=== PATIENT | female | born 1960 | race Caucasian/White ===

== ENCOUNTER → 2021-12-14 | Outpatient (CLI) | payer OTHER, SELFPAY ==
--- NOTE | 2021-12-14 13:29 | MRI_ITS ---
STUDY: MRI BRAIN WITH AND WITHOUT CONTRAST REASON FOR EXAM: Female, 61 years old. L ORBITAL INFLAMATION, H/O BREAST CA, METS TO EYE TECHNIQUE: Standardized multiplanar fat and water weighted pulse sequences were obtained. IV 15mL DOTAREM was administered for the contrast portion of the examination. COMPARISON: None. FINDINGS: Stranding of the left intraconal fat planes is visualized. Linear irregular enhancement visualized along the posterior medial aspect of the left globe extending to the left optic canal best visualized on contrast-enhanced axial series 12 image 8. Along the lateral aspect enhancement is also visualized involving the sheaths of the left optic canal seen on the same image. Prominent subdiaphragmatic changes visualized with apex of the left orbit best visualized coronal series 13 and 8 image 18, at this level there is effacement of the subarachnoid spaces surrounding the left optic nerve.. Mild enlargement of the left superior ophthalmic vein is seen but no evidence of stranding of the adjacent fat planes or marked enlargement to suggest thrombosis, superior ophthalmic vein visualized on axial series 12 image 10. The cavernous sinus is unremarkable. The ophthalmic artery is unremarkable in size and is visualized on axial series 12 image 9 The extraocular muscles demonstrate unremarkable enhancement and unremarkable configuration is no evidence of masses within them. The lacrimal glands are unremarkable bilaterally. Normal size of the ventricles and extra-axial spaces for the patient''s age. Normal white matter tracts of the supratentorial brain. Normal bilateral basal ganglia. Normal thalami. There is no extra-axial fluid accumulation. Normal flow voids within the major intracranial circulation suggesting patency by spin echo criteria. Normal venous enhancement. There is no enhancing intra-axial or extra-axial abnormality. Normal sella turcica, pituitary gland, infundibular stalk, optic chiasm and hypothalamus. Normal tectal plate and pineal gland. Normal midbrain, miroslava and medulla. Normal cerebellum. Normal basal cisterns. Normal bilateral temporal bones. Normal bilateral internal auditory canals. Normal visualized paranasal sinuses. Normal calvarium and skull base. Normal visualized soft tissue structures. Normal visualized upper cervical spine. MRI/Brain W/WO Contrast IMPRESSION: Inflammatory changes visualized within the left orbit most prominent at the apex adjacent to the orbital canal and extending along the medial aspect of the left globe, linear tram track enhancement visualized. There is no evidence of enlargement of the or bursitis suggest thrombosis. No evidence of enhancing masses within the extraocular muscles. Electronically Signed: Roddy Wayne MD at 12:20 EDT ,
[2021-12-14 13:56] LABS: CREATININE FINGERSTICK 0.7 mg/dL (0.55-1.02); EGFR FINGERSTICK > 60.0000 mL/min (>60)
== END | disposition home or self-care (01) ==
PROVIDERS: PCP Internal Medicine; Referring Provider Ophthalmology; Visit Provider Ophthalmology
DX: H05.00 Unspecified acute inflammation of orbit (principal); C79.49 Secondary malignant neoplasm of other parts of nervous system; C80.1 Malignant (primary) neoplasm, unspecified; Z85.3 Personal history of malignant neoplasm of breast
CPT/HCPCS: 70553; A9575